=== PATIENT | female | born 1990 | race Two or more races ===

== ENCOUNTER 2017-09-05 22:03 | Emergency (ER) | payer OTHER ==
[~2017-09-05] VITALS: Ht 160 cm; Wt 52.2 kg
--- NOTE | 2017-09-05 22:05 | NUR ---
TO BED 14 A 26 YO FEMALE PATIENT BB RA AND [employer], PT STATES SWALLOWING BALLOON OF HEROIN 1 HR RESEARCH ASSOCIATE. PATIENT IS AAOX3, NAD NOTED. BREATHING EVEN AND UNLABORED. NONDIAPHORETIC. PLACED ON CARDIAC AND VS MONITORING. SAFETY AND COMFORT MEASURES RENDERED. [employer] AT BEDSIDE.
--- NOTE | 2017-09-05 22:30 | NUR ---
DR PENALOZA AT BEDSIDE TO EVALUATE PATIENT.
--- NOTE | 2017-09-05 22:42 | NUR ---
URINE COLLECTED VIA CLEAN CATCH, SENT TO LAB. DIE MAINTENANCE AT BEDSIDE TO DRAW BLOOD.
[2017-09-05 22:59] LABS: BASOPHILS % (AUTO) 0.3 % (0.0-2.0); EOSINOPHILS # (AUTO) 0.1 /CMM (0.0-0.7); EOSINOPHILS % (AUTO) 0.6 % (0.0-6.0); HEMATOCRIT 39 % (33-45); HEMOGLOBIN 13.3 g/dL (11.5-14.8); LYMPHOCYTES # (AUTO) 1.3 /CMM (0.8-4.8); LYMPHOCYTES % (AUTO) 14.2 % (20.0-44.0); MEAN CORPUSCULAR HEMOGLOBIN 29 PG (26.0-33.0); MEAN CORPUSCULAR HGB CONC 35 g/dl (31.0-36.0); MEAN CORPUSCULAR VOLUME 84 fL (82-100); MONOCYTES # (AUTO) 0.4 /CMM (0.1-1.30); MONOCYTES % (AUTO) 4.9 % (2.0-12.0); PLATELET COUNT (AUTO) 274 /CMM (150-450); RDW COEFFICIENT OF VARIATION 13.3 (11.5-15.0); RED BLOOD CELL COUNT(AUTO) 4.61 MIL/uL (4.0-5.2); WHITE BLOOD COUNT (AUTO) 8.8 K/uL (4.3-11.0)
[2017-09-05] MEDS ORDERED: ONDANSETRON HCL/PF - ER 4 MG/2 ML VIAL IV ONE (23:00)
--- NOTE | 2017-09-05 23:04 | NUR ---
PATIENT REFUSED IV AND NGT PLACEMENT. HEALTH TEACHINGS DONE AND ENCOURAGED X3 PATIENT STILL REFUSED AND SAID, "I DONT NEED THAT. IM JUST GOING TO HAVE TO USE THE BATHROOM." DR PENALOZA NOTIFIED. AWAITING FOR GOLYTELY FROM [facility] THERAPIST.
[2017-09-05 23:05] LABS: APPEARANCE,URINE CLOUDY (CLEAR); BILIRUBIN,URINE NEGATIVE (NEGATIVE); BLOOD, URINE 2+ Ery/uL (NEGATIVE); KETONES,URINE NEGATIVE (NEGATIVE); LEUKOCYTE ESTERASE ,URINE 2+ (NEGATIVE); NITRITE, URINE POSITIVE (NEGATIVE); PROTEIN,URINE TRACE mg/dl (NEGATIVE); UGLUCOSE NEGATIVE (NEGATIVE); UROBILINOGEN,URINE 0.2 EU/dL (0.2)
[2017-09-05 23:06] LABS: COLOR,URINE DARK YELLOW (YELLOW)
--- NOTE | 2017-09-05 23:07 | NUR ---
PATIENT TAKEN TO CT.
[2017-09-05 23:11] LABS: BACTERIA,URINE Many /HPF (None Seen); SQUAMOUS EPITHELIAL CELL,UR Moderate /HPF (None Seen); WBC,URINE TOO NUMEROUS TO COUN /HPF (0-3)
[2017-09-05 23:16] LABS: CALCIUM, SERUM 9.5 mg/dL (8.5-10.1); CARBON DIOXIDE 25 mmol/L (21-32); CHLORIDE 106 mmol/L (98-107); CREATININE 0.8 mg/dL (0.6-1.3); GLUCOSE 89 mg/dL (74-106); POTASSIUM 3.3 mmol/L (3.5-5.1); SODIUM SERUM 143 mmol/L (136-145); UREA NITROGEN, BLOOD 9 mg/dL (7-18)
--- NOTE | 2017-09-05 23:17 | NUR ---
PATIENT BACK FROM CT.
[2017-09-05 23:22] LABS: ALANINE AMINOTRANSFERASE 27 U/L (12-78); ALBUMIN 4.3 g/dL (3.4-5.0); ALCOHOL, BLOOD < 3 mg/dL (0-0); ALKALINE PHOSPHATASE 95 U/L (46-116); ASPARTATE AMINOTRANSFERASE 21 U/L (15-37); BILIRUBIN,DIRECT 0.1 mg/dL (0.0-0.2); BILIRUBIN,TOTAL 0.4 mg/dL (0.2-1.0); TOTAL PROTEIN, SERUM 9.2 g/dL (6.4-8.2)
[2017-09-05 23:26] LABS: SALICYLATE 1.3 mg/dL (2.8-20.0)
[2017-09-05 23:27] LABS: ACETAMINOPHEN 0 ug/ml (10-30)
[2017-09-05] MEDS ORDERED: PEG 3350/NA SULF,BICARB,CL/KCL 4,000 ML BOTTLE ONE (23:27)
--- NOTE | 2017-09-05 23:55 | NUR ---
PROVIDED TEACHINGS ABOUT GOLYTELY ADMINISTRATION TO PATIENT, AND ENCOURAGED PATIENT TO DRINK MEDICINE.
[2017-09-06] MEDS ORDERED: CEFTRIAXONE 1GM BAG (ER ONLY) 1 GM/50 ML PIGGYBACK IV ONE
[2017-09-06] MEDS ORDERED: POTASSIUM CHLORIDE 10 MEQ/50 ML PREMIXED IVPB FOR PERIPHERAL LINE IV ONE
--- NOTE | 2017-09-06 00:29 | NUR ---
STARTED A SALINE LOCK ON THE LEFT FOREARM G22. STOPPED ADMINISTERING GOLYTELY TO PATIENT PER DR PENALOZA'S ORDERS.
[2017-09-06] MEDS ORDERED: CEFTRIAXONE 1 G VIAL ONE (00:31)
[2017-09-06] MEDS ORDERED: ONDANSETRON HCL/PF 4 MG/2 ML VIAL ONE (00:31)
--- NOTE | 2017-09-06 00:38 | NUR ---
EVERT TURCIOS LCSW, CALLED AND INFORMED ABOUT PATIENT.
[2017-09-06] MEDS ORDERED: POTASSIUM CHLORIDE 20 MEQ TAB.PRT.SR PO ONE (00:40)
--- NOTE | 2017-09-06 00:49 | NUR ---
POTASSIUM CHLORIDE 20MEQ PO GIVEN PER DR PENALOZA ORDERS KCL IV UNAVAILABLE.
[2017-09-06 00:57] VITALS: BP 123/72
--- NOTE | 2017-09-06 01:00 | NUR ---
UNCLE AT BEDSIDE WITH PATIENT.
--- NOTE | 2017-09-06 01:30 | NUR ---
ART CAPILLA AT BEDSIDE TO EVALUATE PATIENT.
--- NOTE | 2017-09-06 01:52 | NUR ---
PLACED A CALL AND REPORTED TO MAGEDD HERVEPATCH THAT PATIENT ELOPED, SPOKE TO DRAPERY COUNSELOR [phone]. PATIENT WAS LAST SEEN 10 MINS AGO. VSS. NAD NOTED. DR PENALOZA NOTIFIED AND BIBI GARCIA AWARE.
[2017-09-06] MEDS ORDERED: PEG 3350/NA SULF,BICARB,CL/KCL 4,000 ML BOTTLE PO ONE (08:00)
== END 2017-09-06 03:36 | disposition left against medical advice (07) ==
LOC: ER 22:05
DX: T40.1X2A Poisoning by heroin, intentional self-harm, initial encounter (principal); E87.6 Hypokalemia; N39.0 Urinary tract infection, site not specified; F19.10 Other psychoactive substance abuse, uncomplicated; F43.10 Post-traumatic stress disorder, unspecified; F31.9 Bipolar disorder, unspecified
CPT/HCPCS: 36415; 71045; 74176; 80048; 80076; 80305; 80329; 81001; 83735; 84703 ×2; 85025; 87077; 87086; 87186; 93005; 96365; 99285; A4606; G0480 ×2; J0696; J2405 ×2; J7060; Z7610; 81000-TC